=== PATIENT | male | born 1960 | race Caucasian/White ===

== ENCOUNTER 2018-03-09 17:29 | Inpatient (IN) ==
[2018-03-09 20:11] LABS: Basophils % 0.5 % (0.0-0.8); Eosinophils % 0.7 % (0.00-10.9); Hematocrit 45.4 VOL% (42.0-52.0); Hemoglobin 15.7 GM/DL (14.0-18.0); Immature Granulocytes % 0.2 %; Immature Granulocytes Absolute 0.01 #; Lymphocytes # 0.9 10*3/uL (1.4-4.0); Lymphocytes % 16.4 % (21.2-54.2); Mean Corpuscular HGB Conc 34.6 GM/DL (32-36); Mean Corpuscular Hemoglobin 33 PG (27-34); Mean Corpuscular Volume 94.8 FL (87-102); Mean Platelet Volume 9.7 FL (9.6-12.0); Monocytes # 0.5 10*3/uL (0.11-0.8); Monocytes % 9.6 % (1.7-12.7); Neutrophils % 72.6 % (38.7-73.9); Platelet Count 126 T/CUMM (130-400); Red Blood Count 4.79 MC/CUMM (3.8-5.5); Red Cell Distribution Width 12.2 % (9.3-17.3); White Blood Count 5.5 T/CUMM (4-12)
[2018-03-09 20:14] LABS: Ammonia 22 UMOL/L (11-32)
[2018-03-09 20:43] LABS: Alanine Aminotransferase 25 U/L (16-61); Albumin 3.7 G/DL (3.4-5.0); Alkaline Phosphatase 97 U/L (45-117); Aspartate Amino Transferase 35 U/L (0-37); Blood Urea Nitrogen 12 MG/DL (7-18); Calcium 8.8 MG/DL (8.5-10.1); Glucose 91 MG/DL (74-106); Osmolality,Calculated 282.1 MOS/KG (273-304); Potassium 3.9 MMOL/L (3.5-5.1); Sodium 142 MMOL/L (136-145); Total Protein 7.4 G/DL (6.4-8.3)
[2018-03-09 20:57] LABS: Apearance,Urine CLEAR (Clear); Bilirubin,Urine Negative (Negative); Blood, Urine Negative (Negative); Glucose,Urine (UA) Negative (Negative); Ketones,Urine 20 mg/dL (Negative); Mucus,Urine Occasional /LPF (Occasional); Nitrite,Urine Negative (Negative); Protein,Urine Negative; RBC,Urine 1 /HPF (0-4); Urine Color Yellow (Yellow); Urine Specific Gravity 1.009 (1.001-1.035); Urine Urobilinogen < 2.0 EU/DL (0.2-1.0); WBC,Urine <1 /HPF (0-6)
[2018-03-09 21:01] LABS: Barbiturates Screen,Urine Negative (Negative); Benzodiazepines Screen,Urine Negative (Negative); Cannabinoid Screen,Urine Negative (Negative); Opiate Screen,Urine Negative (Negative); Phencyclidine Screen,Urine Negative (Negative)
[2018-03-10 00:41] LABS: ABG Base Excess 0.1 MMOL/L (-2.5-2.5); ABG HCO3 24.6 MMOL/L (20-26); ABG Oxygen Saturation 99.5 % (95-100); ABG PCO2 36.6 MM HG (35-48); ABG PH 7.426 (7.35-7.45); ABG TCO2 20.2 MMOL/L (23-27); Allen Test Positive; Pt O2 Delivery Device Ventilator
[2018-03-10 04:08] LABS: ABG Base Excess -0.7 MMOL/L (-2.5-2.5); ABG HCO3 23.9 MMOL/L (20-26); ABG Oxygen Saturation 99.4 % (95-100); ABG PCO2 45.4 MM HG (35-48); ABG PH 7.355 (7.35-7.45); ABG TCO2 21.4 MMOL/L (23-27); Allen Test Positive; Pt O2 Delivery Device Ventilator
[2018-03-10 04:21] LABS: Basophils # 0.1 10*3/uL (0.0-0.2); Basophils % 0.6 % (0.0-0.8); Eosinophils # 0.1 10*3/uL (0.0-0.87); Eosinophils % 1.4 % (0.00-10.9); Hematocrit 45.1 VOL% (42.0-52.0); Immature Granulocytes % 0.2 %; Immature Granulocytes Absolute 0.02 #; Lymphocytes # 2.2 10*3/uL (1.4-4.0); Lymphocytes % 24.6 % (21.2-54.2); Mean Corpuscular HGB Conc 33.3 GM/DL (32-36); Mean Corpuscular Hemoglobin 32 PG (27-34); Mean Corpuscular Volume 96.8 FL (87-102); Mean Platelet Volume 9.5 FL (9.6-12.0); Monocytes # 1.3 10*3/uL (0.11-0.8); Monocytes % 14.6 % (1.7-12.7); Neutrophils # 5.3 10*3/uL (1.4-7.4); Neutrophils % 58.6 % (38.7-73.9); Platelet Count 170 T/CUMM (130-400); Red Blood Count 4.66 MC/CUMM (3.8-5.5); Red Cell Distribution Width 12.4 % (9.3-17.3)
[2018-03-10 04:49] LABS: Albumin 3.3 G/DL (3.4-5.0); Bilirubin,Total 1.2 MG/DL (0.2-1.0); Calcium 8.2 MG/DL (8.5-10.1); Osmolality,Calculated 284.8 MOS/KG (273-304); Potassium 3.4 MMOL/L (3.5-5.1); Total Protein 6.6 G/DL (6.4-8.3)
[2018-03-10 06:42] VITALS: BP 97/64
[2018-03-10 11:25] LABS: ABG Base Excess 0.1 MMOL/L (-2.5-2.5); ABG HCO3 24.5 MMOL/L (20-26); ABG Oxygen Saturation 98.7 % (95-100); ABG PCO2 43.3 MM HG (35-48); ABG PH 7.379 (7.35-7.45); ABG TCO2 21.5 MMOL/L (23-27)
[2018-03-11 04:02] LABS: ABG HCO3 21.7 MMOL/L (20-26); ABG Oxygen Saturation 96.2 % (95-100); ABG PCO2 37.9 MM HG (35-48); ABG PH 7.375 (7.35-7.45); ABG PO2 85.6 MM HG (80-95); ABG TCO2 22.8 MMOL/L (23-27)
[2018-03-11 04:18] LABS: Basophils % 0.6 % (0.0-0.8); Eosinophils # 0.1 10*3/uL (0.0-0.87); Eosinophils % 1.7 % (0.00-10.9); Hematocrit 46.3 VOL% (42.0-52.0); Hemoglobin 15.7 GM/DL (14.0-18.0); Immature Granulocytes % 1.1 %; Immature Granulocytes Absolute 0.07 #; Lymphocytes # 1.6 10*3/uL (1.4-4.0); Mean Corpuscular HGB Conc 33.9 GM/DL (32-36); Mean Corpuscular Hemoglobin 32 PG (27-34); Mean Corpuscular Volume 95.7 FL (87-102); Mean Platelet Volume 9.5 FL (9.6-12.0); Monocytes # 0.9 10*3/uL (0.11-0.8); Monocytes % 12.8 % (1.7-12.7); NRBC # 0.02 10*3/uL; Neutrophils % 59.8 % (38.7-73.9); Platelet Count 160 T/CUMM (130-400); Red Blood Count 4.84 MC/CUMM (3.8-5.5); Red Cell Distribution Width 12.5 % (9.3-17.3); White Blood Count 6.7 T/CUMM (4-12)
[2018-03-11 04:42] LABS: Calcium 8.4 MG/DL (8.5-10.1); Osmolality,Calculated 283.8 MOS/KG (273-304); Potassium 4.2 MMOL/L (3.5-5.1)
== END 2018-03-11 13:40 | DRG 884 ==
LOC: EDBD → EDUNIT# → N.ED 17:29 → N.EDINP 22:37 → N.ICU 23:20
PROVIDERS: ADMIT Internal Medicine Nephrology; ATTEND Internal Medicine Nephrology

== ENCOUNTER 2022-08-21 11:00 | Observation (INO) ==
[2022-08-21] MEDS ORDERED: SODIUM CHLORIDE 0.9% 1,000 ML IV STA (11:49)
[2022-08-21 12:22] LABS: Basophils # 0.1 10*3/uL (0.0-0.2); Basophils % 0.6 % (0.0-0.8); Eosinophils # 0.7 10*3/uL (0.0-0.87); Hematocrit 38.3 VOL% (42.0-52.0); Hemoglobin 12.4 GM/DL (14.0-18.0); Immature Granulocytes % 0.3 %; Immature Granulocytes Absolute 0.04 #; Lymphocytes # 1.6 10*3/uL (1.4-4.0); Lymphocytes % 13.5 % (21.2-54.2); Mean Corpuscular HGB Conc 32.4 GM/DL (32-36); Mean Corpuscular Volume 101.3 FL (87-102); Mean Platelet Volume 8.9 FL (9.6-12.0); Monocytes # 0.9 10*3/uL (0.11-0.8); Monocytes % 7.6 % (1.7-12.7); Platelet Count 247 T/CUMM (130-400); Red Blood Count 3.78 MC/CUMM (3.8-5.5); Red Cell Distribution Width 13.8 % (9.3-17.3); White Blood Count 11.57 T/CUMM (4-12)
[2022-08-21 12:33] LABS: INR 0.9; PT Patient Result 10.3 SECS (10.1-12.1); Partial Thromboplastin Time 23.6 SECS (23.7-32.9)
[2022-08-21 13:01] LABS: Alanine Aminotransferase 24 U/L (16-61); Albumin 2.6 G/DL (3.4-5.0); Alkaline Phosphatase 118 U/L (45-117); Aspartate Amino Transferase 28 U/L (0-37); Bilirubin,Total < 0.39 MG/DL (0.20-1.00); Blood Urea Nitrogen 22 MG/DL (7-18); Calcium 8.8 MG/DL (8.5-10.1); Carbon Dioxide 21 MMOL/L (21-32); Chloride 119 MMOL/L (98-107); Glucose 118 MG/DL (74-106); Osmolality,Calculated 291.7 MOS/KG (273-304); Potassium 4.1 MMOL/L (3.5-5.1); Sodium 145 MMOL/L (136-145); Total Protein 5.7 G/DL (6.4-8.2)
[2022-08-21] MEDS ORDERED: DOCUSATE SODIUM 100 MG CAPSULE PO PRN (14:18)
[2022-08-21] MEDS ORDERED: ACETAMINOPHEN 325 MG TABLET PO PRN (14:18)
[2022-08-21] MEDS ORDERED: hydrALAZINE 20 MG/1 ML VIAL IV PRN (14:18)
[2022-08-21] MEDS ORDERED: ALBUTEROL/IPRATROPIUM 3 ML NEB RESP TX PRN (14:18)
[2022-08-21] MEDS ORDERED: ONDANSETRON 4 MG/2 ML VIAL IV PRN (14:18)
[2022-08-21] MEDS: LACTATED RINGERS 1,000 ML IV SCH (14:46)
[2022-08-21 14:48] LABS: Thyroid Stimulating Hormone 3.39 uIU/ml (0.358-3.74)
[2022-08-21 15:10] LABS: Arterial Base Excess iSTAT -6 MMOL/L (-2.5-2.5); Arterial Bicarbonate iSTAT 19.2 MMOL/L (20-26); Arterial O2 Saturation iSTAT 95 % (95-100); Arterial PCO2 iSTAT 35 MM HG (35-48); Arterial PO2 iSTAT 81 MM HG (80-95); Arterial Total CO2 iSTAT 20 MMO/L (23-27); Arterial pH iSTAT 7.342 (7.35-7.45)
[2022-08-21] MEDS: ENOXAPARIN 40 MG/0.4 ML SYRINGE SUBCUT SCH (15:43)
[2022-08-21 17:03] LABS: Mucus,Urine Occasional /LPF (Occasional); RBC,Urine 4 /HPF (0-4)
[2022-08-21 17:06] LABS: Protein,Urine >=300 mg/dL (Negative); Urine Appearance Clear (Clear); Urine Color Yellow (Yellow); Urine Specific Gravity >= 1.030 (1.001-1.035)
[2022-08-21 17:07] LABS: Barbiturates Screen,Urine Negative (Negative); Benzodiazepines Screen,Urine Negative (Negative); Bilirubin,Urine Negative (Negative); Blood, Urine Small mg/dL (Negative); Cannabinoid Screen,Urine Negative (Negative); Glucose,Urine (UA) Negative (Negative); Ketones,Urine Negative (Negative); Nitrite,Urine Negative (Negative); Opiate Screen,Urine Negative (Negative); Phencyclidine Screen,Urine Negative (Negative); Urine Urobilinogen 0.2 eU/dL (<2.0)
[2022-08-21] MEDS: LACTULOSE 20 GM/30 ML UDCUP PO SCH ×2 (18:57→20:45)
[2022-08-21] MEDS: TAMSULOSIN 0.4 MG CAPSULE PO SCH (20:45)
[2022-08-21] MEDS: LORazepam 1 MG TABLET PO SCH (20:45)
[2022-08-21] MEDS: SIMVASTATIN 10 MG TABLET PO SCH (20:45)
[2022-08-21] MEDS: RIFAXIMIN 550 MG TABLET PO SCH (20:45)
[2022-08-21] MEDS: PROPRANOLOL 10 MG TABLET PO SCH (23:20)
[2022-08-22] MEDS: LACTATED RINGERS 1,000 ML IV SCH ×2 (01:57→15:29)
[2022-08-22 05:05] LABS: Basophils # 0.1 10*3/uL (0.0-0.2); Basophils % 0.5 % (0.0-0.8); Eosinophils # 0.5 10*3/uL (0.0-0.87); Eosinophils % 5.4 % (0.00-10.9); Hemoglobin 12.3 GM/DL (14.0-18.0); Immature Granulocytes % 0.3 %; Immature Granulocytes Absolute 0.03 #; Lymphocytes # 1.8 10*3/uL (1.4-4.0); Lymphocytes % 19.5 % (21.2-54.2); Mean Corpuscular HGB Conc 33.2 GM/DL (32-36); Mean Corpuscular Volume 100.5 FL (87-102); Monocytes # 0.8 10*3/uL (0.11-0.8); Monocytes % 8.8 % (1.7-12.7); Neutrophils % 65.5 % (38.7-73.9); Platelet Count 226 T/CUMM (130-400); Red Blood Count 3.68 MC/CUMM (3.8-5.5); Red Cell Distribution Width 13.5 % (9.3-17.3); White Blood Count 9.46 T/CUMM (4-12)
[2022-08-22 05:23] LABS: Albumin 2.5 G/DL (3.4-5.0); Bilirubin,Total 0.4 MG/DL (0.20-1.00); Calcium 8.8 MG/DL (8.5-10.1); Osmolality,Calculated 284.1 MOS/KG (273-304); Potassium 3.7 MMOL/L (3.5-5.1); Risk Ratio 2.9; Total Protein 5.9 G/DL (6.4-8.2); VLDL Cholesterol 36.6 MG/DL
[2022-08-22] MEDS: LINACLOTIDE 145 MCG CAPSULE PO SCH (05:40)
[2022-08-22] MEDS ORDERED: ERGOCALCIFEROL 50,000 UNIT CAPSULE PO SCH (09:00)
[2022-08-22] MEDS ORDERED: ZINC OXIDE 20% OINT 28.35 GM TUBE TOP PRN (09:00)
[2022-08-22] MEDS: LORazepam 0.5 MG TABLET PO SCH (10:12)
[2022-08-22] MEDS: DUTASTERIDE 0.5 MG CAPSULE PO SCH (10:12)
[2022-08-22] MEDS: CHOLECALCIFEROL 1,000 UNIT TABLET PO SCH (10:13)
[2022-08-22] MEDS: RIFAXIMIN 550 MG TABLET PO SCH ×2 (10:13→21:40)
[2022-08-22] MEDS: PANTOPRAZOLE 40 MG TABLET PO SCH (10:13)
[2022-08-22] MEDS: PROPRANOLOL 10 MG TABLET PO SCH ×2 (10:13→21:40)
[2022-08-22] MEDS: TAMSULOSIN 0.4 MG CAPSULE PO SCH ×2 (10:13→21:40)
[2022-08-22] MEDS: POLYETHYLENE GLYCOL POWDER 17 GM PACK PO SCH (10:14)
[2022-08-22] MEDS: FLUTICASONE 50 MCG NASAL SPRAY 16 GM BOTTLE BOTH NARES SCH (10:14)
[2022-08-22] MEDS: LACTULOSE 20 GM/30 ML UDCUP PO SCH ×4 (10:14→21:40)
[2022-08-22] MEDS: MULTIVITAMIN LIQUID (CENTRUM) 60 ML BOTTLE PO SCH (10:17)
[2022-08-22] MEDS: ENOXAPARIN 40 MG/0.4 ML SYRINGE SUBCUT SCH (15:29)
[2022-08-22] MEDS ORDERED: BENZTROPINE 1 MG TABLET PO ONE (15:47)
[2022-08-22] MEDS: SIMVASTATIN 10 MG TABLET PO SCH (21:40)
[2022-08-22] MEDS: LORazepam 1 MG TABLET PO SCH (21:40)
[2022-08-23] MEDS: LACTATED RINGERS 1,000 ML IV SCH ×2 (01:27→11:04)
[2022-08-23] MEDS: LINACLOTIDE 145 MCG CAPSULE PO SCH (05:35)
[2022-08-23] MEDS: LORazepam 0.5 MG TABLET PO SCH ×2 (08:34→20:03)
[2022-08-23] MEDS: PANTOPRAZOLE 40 MG TABLET PO SCH (08:34)
[2022-08-23] MEDS: RIFAXIMIN 550 MG TABLET PO SCH ×2 (08:34→20:03)
[2022-08-23] MEDS: TAMSULOSIN 0.4 MG CAPSULE PO SCH ×2 (08:34→20:03)
[2022-08-23] MEDS: DUTASTERIDE 0.5 MG CAPSULE PO SCH (08:34)
[2022-08-23] MEDS: PROPRANOLOL 10 MG TABLET PO SCH ×2 (08:34→20:03)
[2022-08-23] MEDS: LACTULOSE 20 GM/30 ML UDCUP PO SCH ×4 (08:34→20:03)
[2022-08-23] MEDS: CHOLECALCIFEROL 1,000 UNIT TABLET PO SCH (08:35)
[2022-08-23] MEDS: POLYETHYLENE GLYCOL POWDER 17 GM PACK PO SCH (09:14)
[2022-08-23] MEDS: FLUTICASONE 50 MCG NASAL SPRAY 16 GM BOTTLE BOTH NARES SCH (09:14)
[2022-08-23] MEDS: MULTIVITAMIN LIQUID (CENTRUM) 60 ML BOTTLE PO SCH (09:14)
[2022-08-23] MEDS ORDERED: QUEtiapine 25 MG TABLET PO PRN (10:49)
[2022-08-23] MEDS: ENOXAPARIN 40 MG/0.4 ML SYRINGE SUBCUT SCH (14:00)
[2022-08-23] MEDS: SIMVASTATIN 10 MG TABLET PO SCH (20:03)
[2022-08-23] MEDS: LORazepam 1 MG TABLET PO SCH (20:03)
[2022-08-24 05:10] LABS: Basophils # 0.1 10*3/uL (0.0-0.2); Basophils % 0.6 % (0.0-0.8); Eosinophils # 0.4 10*3/uL (0.0-0.87); Hematocrit 37.8 VOL% (42.0-52.0); Hemoglobin 12.3 GM/DL (14.0-18.0); Immature Granulocytes % 0.2 %; Immature Granulocytes Absolute 0.02 #; Lymphocytes # 1.6 10*3/uL (1.4-4.0); Lymphocytes % 19.2 % (21.2-54.2); Mean Corpuscular HGB Conc 32.5 GM/DL (32-36); Mean Corpuscular Volume 101.3 FL (87-102); Mean Platelet Volume 9.3 FL (9.6-12.0); Monocytes # 0.8 10*3/uL (0.11-0.8); Monocytes % 9.8 % (1.7-12.7); Neutrophils % 65.2 % (38.7-73.9); Platelet Count 225 T/CUMM (130-400); Red Blood Count 3.73 MC/CUMM (3.8-5.5); Red Cell Distribution Width 13.8 % (9.3-17.3); White Blood Count 8.27 T/CUMM (4-12)
[2022-08-24 05:36] LABS: Albumin 2.4 G/DL (3.4-5.0); Bilirubin,Total 0.4 MG/DL (0.20-1.00); Calcium 8.8 MG/DL (8.5-10.1); Osmolality,Calculated 285.8 MOS/KG (273-304); Potassium 3.5 MMOL/L (3.5-5.1); Total Protein 5.7 G/DL (6.4-8.2)
[2022-08-24] MEDS: LINACLOTIDE 145 MCG CAPSULE PO SCH (06:10)
[2022-08-24] MEDS: RIFAXIMIN 550 MG TABLET PO SCH ×2 (09:21→20:20)
[2022-08-24] MEDS: LACTULOSE 20 GM/30 ML UDCUP PO SCH ×2 (09:21→20:20)
[2022-08-24] MEDS: LORazepam 0.5 MG TABLET PO SCH (09:21)
[2022-08-24] MEDS: POLYETHYLENE GLYCOL POWDER 17 GM PACK PO SCH (09:21)
[2022-08-24] MEDS: TAMSULOSIN 0.4 MG CAPSULE PO SCH ×2 (09:21→20:19)
[2022-08-24] MEDS: PROPRANOLOL 10 MG TABLET PO SCH ×2 (09:22→20:20)
[2022-08-24] MEDS: MULTIVITAMIN LIQUID (CENTRUM) 60 ML BOTTLE PO SCH (09:22)
[2022-08-24] MEDS: DUTASTERIDE 0.5 MG CAPSULE PO SCH (09:22)
[2022-08-24] MEDS: CHOLECALCIFEROL 1,000 UNIT TABLET PO SCH (09:22)
[2022-08-24] MEDS: PANTOPRAZOLE 40 MG TABLET PO SCH (09:22)
[2022-08-24] MEDS: FLUTICASONE 50 MCG NASAL SPRAY 16 GM BOTTLE BOTH NARES SCH (09:22)
[2022-08-24] MEDS: ENOXAPARIN 40 MG/0.4 ML SYRINGE SUBCUT SCH (14:50)
[2022-08-24] MEDS: LORazepam 1 MG TABLET PO SCH (20:19)
[2022-08-24] MEDS: levETIRAcetam 500 MG TABLET PO SCH (20:20)
[2022-08-24] MEDS: SIMVASTATIN 10 MG TABLET PO SCH (20:20)
[2022-08-25 05:45] LABS: Basophils # 0.1 10*3/uL (0.0-0.2); Basophils % 0.6 % (0.0-0.8); Eosinophils # 0.4 10*3/uL (0.0-0.87); Hematocrit 35.6 VOL% (42.0-52.0); Hemoglobin 11.5 GM/DL (14.0-18.0); Immature Granulocytes % 0.4 %; Immature Granulocytes Absolute 0.03 #; Lymphocytes # 1.5 10*3/uL (1.4-4.0); Mean Corpuscular HGB Conc 32.3 GM/DL (32-36); Mean Corpuscular Volume 102.6 FL (87-102); Mean Platelet Volume 9.3 FL (9.6-12.0); Monocytes # 0.8 10*3/uL (0.11-0.8); Monocytes % 9.6 % (1.7-12.7); Neutrophils % 66.4 % (38.7-73.9); Platelet Count 222 T/CUMM (130-400); Red Blood Count 3.47 MC/CUMM (3.8-5.5); Red Cell Distribution Width 14.1 % (9.3-17.3); White Blood Count 8.41 T/CUMM (4-12)
[2022-08-25] MEDS: LINACLOTIDE 145 MCG CAPSULE PO SCH (05:48)
[2022-08-25 06:19] LABS: Calcium 8.3 MG/DL (8.5-10.1); Osmolality,Calculated 290.4 MOS/KG (273-304); Potassium 3.5 MMOL/L (3.5-5.1)
[2022-08-25] MEDS: POLYETHYLENE GLYCOL POWDER 17 GM PACK PO SCH (09:34)
[2022-08-25] MEDS: LACTULOSE 20 GM/30 ML UDCUP PO SCH (09:35)
[2022-08-25] MEDS: MULTIVITAMIN LIQUID (CENTRUM) 60 ML BOTTLE PO SCH (09:35)
[2022-08-25] MEDS: levETIRAcetam 500 MG TABLET PO SCH (09:36)
[2022-08-25] MEDS: RIFAXIMIN 550 MG TABLET PO SCH (09:36)
[2022-08-25] MEDS: LORazepam 0.5 MG TABLET PO SCH (09:36)
[2022-08-25] MEDS: PROPRANOLOL 10 MG TABLET PO SCH (09:36)
[2022-08-25] MEDS: PANTOPRAZOLE 40 MG TABLET PO SCH (09:36)
[2022-08-25] MEDS: TAMSULOSIN 0.4 MG CAPSULE PO SCH (09:36)
[2022-08-25] MEDS: CHOLECALCIFEROL 1,000 UNIT TABLET PO SCH (09:37)
[2022-08-25] MEDS: FLUTICASONE 50 MCG NASAL SPRAY 16 GM BOTTLE BOTH NARES SCH (09:38)
[2022-08-25] MEDS: DUTASTERIDE 0.5 MG CAPSULE PO SCH (09:39)
[2022-08-25 12:02] VITALS: BP 157/82
== END 2022-08-25 13:41 ==
LOC: EDUNIT# → EDBD → N.ED 11:00 → N.EDINP 11:00 → SUATTDRO 14:18 → N.3E 17:53
PROVIDERS: ADMIT Internal Medicine; ATTEND Internal Medicine